=== PATIENT | female | born 1970 | race Caucasian/White ===

== ENCOUNTER → 2020-03-25 | Outpatient (CLI) | payer OTHER | LOC: MC.RAD 14:22 | DX: Z12.31 Encounter for screening mammogram for malignant neoplasm of breast (principal) ==

== ENCOUNTER → 2021-06-29 | Outpatient (CLI) | payer OTHER | LOC: MC.RAD 14:27 | DX: Z12.31 Encounter for screening mammogram for malignant neoplasm of breast (principal) ==

== ENCOUNTER 2023-11-07 16:55 | Emergency (ER) | payer OTHER ==
[~2023-11-07] VITALS: Ht 175.3 cm; Wt 65.9 kg
[2023-11-07 17:07] VITALS: TEMP 98.3
[2023-11-07] MEDS ORDERED: Morphine 4 MG/ML VIAL IV ONE (17:30)
[2023-11-07] MEDS ORDERED: Ondansetron 4 MG/2 ML VIAL IV ONE (17:30)
[2023-11-07 17:48] LABS: BASO % 0.6 % (0.0-2.0); EOS % 0.3 % (0.0-4.0); GRAN # 5.1 K/mm3 (1.4-6.5); HEMATOCRIT 41.2 % (37.0-47.0); HEMOGLOBIN 13.5 g/dl (12.5-16.0); LYMPH # 1.4 K/mm3 (1.2-3.4); LYMPH % 20.2 % (20.0-51.0); MEAN CELL VOLUME 93 fl (80.0-100.0); MEAN CORPUSCULAR HEMOGLOBIN 31 pg (27-31); MEAN CORPUSCULAR HGB CONC 33 g/dl (33.0-37.0); MEAN PLATELET VOLUME 10.4 fl (7.4-10.4); MONO # 0.4 K/mm3 (0.1-0.6); MONO % 5.5 % (1.7-9.3); PLATELET COUNT 197 K/mm3 (130-400); RED BLOOD COUNT 4.41 M/mm3 (4.10-5.30); REDCELL DISTRIBUTION WIDTH-CV 12.1 % (11.5-14.5)
[2023-11-07 18:08] LABS: ALBUMIN 4.7 g/dL (3.5-5.0); BILIRUBIN,TOTAL 0.6 mg/dL (0.2-1.2); CALCIUM 9.8 mg/dL (8.4-10.2); CREATININE, serum 0.95 mg/dL (0.57-1.11); POTASSIUM 4.1 mEq/L (3.5-4.5); TOTAL PROTEIN 7.8 g/dl (6.2-8.1)
[2023-11-07] MEDS ORDERED: Iohexol 300 - 100 ML VIAL IV ONE (18:12)
[2023-11-07] MEDS ORDERED: NS 50 ML IV SCH (18:13)
[2023-11-07] MEDS ORDERED: HYDROmorphone 0.5 MG/0.5 ML SYRINGE IV ONE (18:45)
[2023-11-07] MEDS ORDERED: Lidocaine 4% Topical Patch TP ONE (18:45)
[2023-11-07] MEDS ORDERED: PERCOCET 325 MG1 TA3 PO (19:02)
[2023-11-07 19:30] VITALS: BP 122/79; PULSE 67
== END 2023-11-07 19:30 | disposition home or self-care (01) ==
LOC: COL.ER 16:55
PROVIDERS: Family Medicine
DX: S22.31XA Fracture of one rib, right side, initial encounter for closed fracture (principal); S27.329A Contusion of lung, unspecified, initial encounter; W55.12XA Struck by horse, initial encounter
CPT/HCPCS: A9284; J1170; J2270; J2405; Q9967

== ENCOUNTER → 2024-01-16 | Outpatient (CLI) | payer OTHER ==
[~2024-01-16] MED LIST: Iohexol 300 - 100 ML VIAL IV ONE; NS 100 ML IV SCH; PERCOCET 325 MG1 TA3 PO
== END ==
LOC: COL.RAD 07:10
DX: K76.9 Liver disease, unspecified (principal)
CPT/HCPCS: Q9967